=== PATIENT | male | born 2000 | race Caucasian/White ===

== ENCOUNTER 2022-12-02 15:38 | Outpatient (OUT) | payer OTHER, SELFPAY ==
[2022-12-02 15:59] LABS: Basophils Percent Auto 0.4 % (0.2-2.0); Eosinophils Absolute Auto 0.1 10^3/uL (0.0-0.7); Eosinophils Percent Auto 0.8 % (0.9-7.0); Hematocrit 45.1 % (42.0-54.0); Hemoglobin 16.6 g/dL (14.0-18.0); Immature Granulocytes Abs Auto 0.03 10^3/uL (0.00-0.03); Immature Granulocytes Pct Auto 0.3 % (0.0-0.5); Lymphocytes Absolute Auto 2.4 10^3/uL (1.2-3.8); Lymphocytes Percent Auto 22.7 % (20.5-60.0); Mean Corpuscular HGB Conc 36.8 g/dL (29.9-35.2); Mean Corpuscular Hemoglobin 29.9 pg (25.9-34.0); Mean Corpuscular Volume 81.1 fL (80.0-94.0); Mean Platelet Volume 8.9 fL (9.5-13.5); Monocytes Absolute Auto 0.9 10^3/uL (0.3-0.8); Monocytes Percent Auto 8.5 % (1.7-12.0); Neutrophils Absolute Auto 7.1 10^3/uL (1.4-6.5); Neutrophils Percent Auto 67.3 % (43.0-75.0); Platelet Count 455 10^3/uL (150-450); Red Blood Count 5.56 10^6/uL (4.70-6.10); Red Cell Distribution Width 12.3 % (11.0-15.0); White Blood Count 10.5 10^3/uL (4.0-11.0)
[2022-12-02 16:16] LABS: Alanine Aminotransferase 21 U/L (16-63); Albumin Globulin Ratio 1.2; Albumin Level 4.5 g/dL (3.4-5.0); Alkaline Phosphatase 54 U/L (46-116); Anion Gap 11.6; Aspartate Amino Transferase 10 U/L (15-37); BUN Creatinine Ratio 12.1; Bilirubin Total 1.5 mg/dL (0.2-1.0); Calcium 9.7 mg/dL (8.5-10.1); Carbon Dioxide 28.2 mmol/L (21.0-32.0); Chloride 93 mmol/L (98-107); Estimated GFR (African America >60 (>=60); Estimated GFR (Non-African Ame >60 (>=60); Globulin 3.7 g/dL; Glucose 133 mg/dL (74-106); Magnesium 2.1 mg/dL (1.8-2.4); Potassium 3.8 mmol/L (3.5-5.1); Sodium 129 mmol/L (136-145); Total Protein 8.2 g/dL (6.4-8.2)
== END 2022-12-02 15:39 | disposition home or self-care (01) ==
LOC: LAB 15:44
PROVIDERS: PCP Family Medicine; Visit Provider Family Medicine
DX: E86.0 Dehydration (principal); R10.12 Left upper quadrant pain; M79.10 Myalgia, unspecified site
CPT/HCPCS: 36415; 80053; 83690; 83735; 85025

== ENCOUNTER 2023-10-13 10:31 | Emergency (ER) | payer OTHER, SELFPAY ==
[2023-10-13 10:33] VITALS: BP 131/102; PULSE 108; TEMP 37.6; O2SAT 99; BMI 20.2
--- NOTE | 2023-10-13 10:41 | ECG_ITS ---
The [facility] Test Date: 2023-10-13 Pat Name: MADI ZHONG Department: Room: - Gender: Male Manager Regulatory: : 2000 Requested By: CYNTHIA SHAFFER Order Number: [id number] Reading MD: GUERO GARCES Measurements Intervals Reeders Rate: 67 P: 84 MD: 140 QRS: 102 QRSD: 92 T: 53 QT: 382 QTc: 398 Interpretive Statements 1100 Sinus rhythm 1102 Sinus arrhythmia 2420 RSR (QR) in lead V1/V2, consistent with right ventricular conduction delay 6120 Possible right atrial enlargement 7100 Abnormal right axis deviation 9130 borderline ECG No previous ECG available for comparison Electronically Signed On 10-14-2023 13:20:14 EDT by GUEOR GARCES
--- NOTE | 2023-10-13 10:45 | XR_ITS ---
The [address] [address] Patient Name: MADI ZHONG MRN: [id number] date: 2000 Sex: M Assigned Patient Location: ER Current Patient Location: ED.MAIN Accession/Order Number: [id number] Exam Date: 10/13/2023 11:02 Report Date: 10/13/2023 11:24 At the request of: SHANNAN CARMONA Procedure: XR chest 1V EXAMINATION: XR chest 1V HISTORY: sob COMPARISON: No relevant comparison available. FINDINGS: LUNGS: No significant pulmonary parenchymal abnormalities. VASCULATURE: No increased pulmonary vasculature. PLEURA: No pneumothorax, effusion, or pleural thickening. CARDIAC: No cardiomegaly or cardiac silhouette abnormality. MEDIASTINUM: No visible mass or adenopathy. BONES: No fracture or visible bone lesion. OTHER: Negative. XR/XR chest 1V IMPRESSION: 1. Normal chest. Electronically authenticated by: CRISTO PERES Date: 10/13/2023 11:24
[2023-10-13 10:53] LABS: Basophils Percent Auto 0.3 % (0.2-2.0); Eosinophils Absolute Auto 0.1 10^3/uL (0.0-0.7); Eosinophils Percent Auto 0.4 % (0.9-7.0); Hematocrit 46.3 % (42.0-54.0); Hemoglobin 16.7 g/dL (14.0-18.0); Immature Granulocytes Abs Auto 0.04 10^3/uL (0.00-0.03); Immature Granulocytes Pct Auto 0.3 % (0.0-0.5); Lymphocytes Absolute Auto 3.9 10^3/uL (1.2-3.8); Mean Corpuscular HGB Conc 36.1 g/dL (29.9-35.2); Mean Corpuscular Hemoglobin 29.5 pg (25.9-34.0); Mean Corpuscular Volume 81.8 fL (80.0-94.0); Mean Platelet Volume 9.3 fL (9.5-13.5); Monocytes Absolute Auto 1.4 10^3/uL (0.3-0.8); Monocytes Percent Auto 9.2 % (1.7-12.0); Neutrophils Absolute Auto 10.1 10^3/uL (1.4-6.5); Neutrophils Percent Auto 64.8 % (43.0-75.0); Platelet Count 438 10^3/uL (150-450); Red Blood Count 5.66 10^6/uL (4.70-6.10); Red Cell Distribution Width 11.9 % (11.0-15.0); White Blood Count 15.5 10^3/uL (4.0-11.0)
[2023-10-13] MEDS: ONDANSETRON PF 4 MG/2 ML VIAL IV (11:01)
[2023-10-13] MEDS: 0.9 % SODIUM CHLORIDE 1,000 ML 1000 ML IV (11:01)
[2023-10-13] MEDS: FAMOTIDINE/PF 20 MG/2 ML VIAL IV (11:01)
[2023-10-13 11:14] LABS: Alanine Aminotransferase 22 U/L (16-63); Albumin Globulin Ratio 1.2; Albumin Level 4.9 g/dL (3.4-5.0); Alkaline Phosphatase 65 U/L (46-116); Anion Gap 20.7; Aspartate Amino Transferase 19 U/L (15-37); BUN Creatinine Ratio 17.9; Bilirubin Total 2.5 mg/dL (0.2-1.0); Calcium 9.6 mg/dL (8.5-10.1); Carbon Dioxide 23.7 mmol/L (21.0-32.0); Chloride 90 mmol/L (98-107); Estimated GFR (African America >60 (>=60); Estimated GFR (Non-African Ame >60 (>=60); Ethanol <3 mg/dL; Glucose 119 mg/dL (74-106); Magnesium 2.1 mg/dL (1.8-2.4); Potassium 3.4 mmol/L (3.5-5.1); Sodium 131 mmol/L (136-145); Total Protein 8.9 g/dL (6.4-8.2); Troponin I High Sensitivity 6.3 pg/mL (4.0-76.1)
[2023-10-13 11:16] VITALS: PULSE 67
--- NOTE | 2023-10-13 11:16 | CT_ITS ---
The [address] [address] Patient Name: MADI ZHONG MRN: [id number] date: 2000 Sex: M Assigned Patient Location: ER Current Patient Location: ED.MAIN Accession/Order Number: [id number] Exam Date: 10/13/2023 11:23 Report Date: 10/13/2023 11:50 At the request of: SHANNAN CARMONA Procedure: CT abdomen pelvis wo con EXAM: CT abdomen pelvis wo con HISTORY: epigastric abd pain and leukocytosis COMPARISON: None. TECHNIQUE: Axial soft tissue windows of the abdomen and pelvis with coronal and sagittal reformats. CT dose reduction technique was used including Automated Exposure Control. Findings: Lack of intravenous contrast limits evaluation. ABDOMEN: There is a small region of focal fatty infiltration within the liver adjacent to the falciform ligament. The gallbladder, spleen, pancreas, adrenal glands and kidneys are unremarkable. The visualized portions of the bilateral ureters are nondilated. Evaluation of the bowel is limited given the absence of oral contrast. No bowel obstruction. The appendix is not definitely identified. The aorta is normal caliber. No enlarged abdominal lymph nodes or free abdominal fluid. Pelvis: Unremarkable bladder. The prostate is nonenlarged. No enlarged pelvic lymph nodes or free pelvic fluid. No aggressive sclerotic or lytic osseous lesions. CT/CT abdomen pelvis wo con IMPRESSION: 1. No acute abdominal or pelvic abnormality. Electronically authenticated by: DENIA GUTHRIE Date: 10/13/2023 11:50
--- NOTE | 2023-10-13 11:55 | ED_ITS ---
HPI HPI - General Adult General Chief complaint: Nausea/Vomiting/Diarrhea Stated complaint: ABDOMIANL PAIN Time Seen by Provider: 10/13/23 10:40 Source: patient Mode of arrival: walk-in History of Present Illness HPI narrative: Patient is coming to the ER with 3 days history of nausea vomiting and not tolerating anything by mouth, the patient also have some epigastric pain No other complaints or diarrhea or fever or chills although he mentions sometimes he have shortness of breath but he admits that he have an anxiety Nobody who had similar symptoms at home Related Data Previous Rx's ?Medication ?Instructions ?Recorded dicyclomine 20 mg tablet 20 mg PO QID PRN abdominal pain 10/13/23 #10 tabs famotidine 20 mg tablet (Pepcid) 20 mg PO BID #10 tabs 10/13/23 ondansetron 4 mg disintegrating 4 mg PO Q8H PRN nausea and 10/13/23 tablet vomiting 48 hours #10 tabs pantoprazole 40 mg granules 40 mg PO DAILY #30 ea 10/13/23 delayed-release for susp in packet (Protonix) Allergies Allergy/AdvReac Type Severity Reaction Status Date / Time No Known Drug Allergies Allergy Verified 10/13/23 10:38 Opioid HPI Opioid Management Most Recent Opioid Data: Last Pain Scale 5 10/13/23 10:33 Review of Systems ROS Status of ROS 10 or more systems reviewed and unremark able except as noted in history and below Exam Narrative Exam Narrative: Nurses notes and vital signs reviewed and patient is not hypoxic. General: Well-appearing and in no apparent distress. Skin: Warm, dry, no pallor noted. No rash. Head: Normocephalic, atraumatic. Neck: Supple, non-tender. Eye: Pupils are equal, round and EOMI. No scleral icterus. Ears, Nose, Mouth, and Throat: TM are clear, no nasal mucosal hypertrophy. Oral mucosa is moist, no posterior oropharynx erythema, uvula is mid-line Cardiovascular: Regular Rate and Rhythm without murmur, gallop or rub. Respiratory: No accessory muscle use or respiratory distress. Lungs are clear to auscultation, no wheezing, rales or rhonchi Chest Wall: no tenderness Back: No midline thoracic or lumbar vertebral tenderness. No CVA tenderness Musculoskeletal: normal ROM, no calf or popliteal tenderness, no lower extremity edema/swelling GI: Abdomen is soft, non-distended. Normal bowel sounds. No masses appreciated. Epigastric discomfort on examination,. No rebound, guarding, or rigidity noted. Neurological: A&O x4. No cranial nerve dysfunction observed. No truncal ataxia. Moves all extremities. Sensation intact. Psychiatric: Cooperative and interactive. Normal mood and affect. Constitutional Vital Signs, click to edit/add: Last Vital Signs Temp 99.6 F 10/13/23 10:33 Pulse 108 H 10/13/23 10:33 Resp 18 10/13/23 10:33 BP 131/102 H 10/13/23 10:33 Pulse Ox 99 10/13/23 10:33 O2 Del Method Room Air 10/13/23 10:33 Course Vital Signs Vital signs: Vital Signs Temperature 99.6 F 10/13/23 10:33 Pulse Rate 108 H 10/13/23 10:33 Respiratory Rate 18 10/13/23 10:33 Blood Pressure 131/102 H 10/13/23 10:33 Pulse Oximetry 99 10/13/23 10:33 Oxygen Delivery Method Room Air 10/13/23 10:33 Temperature 99.6 F 10/13/23 10:33 Pulse Rate 108 H 10/13/23 10:33 Respiratory Rate 18 10/13/23 10:33 Blood Pressure 131/102 H 10/13/23 10:33 Pulse Oximetry 99 10/13/23 10:33 Oxygen Delivery Method Room Air 10/13/23 10:33 Medical Decision Making MDM Narrative Medical decision making narrative: The patient presenting to us with a EKG showing sinus rhythm with a heart rate of [address] elevation or depression The patient CBC and chemistry shows mild leukocytosis in addition to a chemistry showing hyponatremia and hypokalemia which is mostly secondary to the nausea and the vomiting The patient provided with IV fluid Pepcid and Zofran in the ER after which she was feeling better CT abdomen pelvis without contrast showed no acute pathology as well as chest x- ray The patient was discharged home with supportive care with Pepcid Protonix as well as full liquid diet for few days as possible treatment for gastritis The patient is to follow up with primary care physician in next 2-3 days or to return to the emergency department should any of the signs or symptoms worsen or new symptoms develop. The patient agrees with the following Diagnosis and Treatment plan and the patient will be discharged home. Lab Data Labs: Lab Results 10/13/23 Range/Units 10:45 WBC 15.5 H (4.0-11.0) 10^3/uL RBC 5.66 (4.70-6.10) 10^6/uL Hgb 16.7 (14.0-18.0) g/dL Hct 46.3 (42.0-54.0) % MCV 81.8 (80.0-94.0) fL MCH 29.5 (25.9-34.0) pg MCHC 36.1 H (29.9-35.2) g/dL RDW 11.9 (11.0-15.0) % Plt Count 438 (150-450) 10^3/uL MPV 9.3 L (9.5-13.5) fL Neut % (Auto) 64.8 (43.0-75.0) % Lymph % (Auto) 25.0 (20.5-60.0) % [place] % (Auto) 9.2 (1.7-12.0) % Eos % (Auto) 0.4 L (0.9-7.0) % Baso % (Auto) 0.3 (0.2-2.0) % Neut # (Auto) 10.1 H (1.4-6.5) 10^3/uL Lymph # (Auto) 3.9 H (1.2-3.8) 10^3/uL [place] # (Auto) 1.4 H (0.3-0.8) 10^3/uL Eos # (Auto) 0.1 (0.0-0.7) 10^3/uL Baso # (Auto) 0.0 (0.0-0.1) 10^3/uL Abs Immat Gran (auto) 0.04 H (0.00-0.03) 10^3/uL Imm/Tot Granulo (auto) 0.3 (0.0-0.5) % Sodium 131 L (136-145) mmol/L Potassium 3.4 L (3.5-5.1) mmol/L Chloride 90 L (98-107) mmol/L Carbon Dioxide 23.7 (21.0-32.0) mmol/L Anion Gap 20.7 BUN 21.0 H (7.0-18.0) mg/dL Creatinine 1.17 (0.70-1.30) mg/dL Est GFR ( Amer) >60 (>=60) Est GFR (Non-Af Amer) >60 (>=60) BUN/Creatinine Ratio 17.9 Glucose 119 H (74-106) mg/dL Lactate 2.0 (0.4-2.0) mmol/L Calcium 9.6 (8.5-10.1) mg/dL Magnesium 2.1 (1.8-2.4) mg/dL Total Bilirubin 2.5 H (0.2-1.0) mg/dL AST 19 (15-37) U/L ALT 22 (16-63) U/L Alkaline Phosphatase 65 (46-116) U/L Troponin I High Sens 6.3 (4.0-76.1) pg/mL Total Protein 8.9 H (6.4-8.2) g/dL Albumin 4.9 (3.4-5.0) g/dL Globulin 4.0 g/dL Albumin/Globulin Ratio 1.2 Lipase 24.0 (16.0-77.0) U/L Ethanol Quant <3 mg/dL Discharge Plan Discharge Stand Alone Forms: Portal Instructions Chief Complaint: Nausea/Vomiting/Diarrhea Clinical Impression: Gastritis Patient Disposition: Home, Self-Care Time of Disposition Decision: 12:03 Condition: Good Prescriptions / Home Meds: New ondansetron 4 mg tablet,disintegrating 4 mg PO Q8H PRN (Reason: nausea and vomiting) 2 Days Qty: 10 0RF famotidine [Pepcid] 20 mg tablet 20 mg PO BID Qty: 10 0RF pantoprazole [Protonix] [address] for susp in packet 40 mg PO DAILY Qty: 30 0RF dicyclomine 20 mg tablet 20 mg PO QID PRN (Reason: abdominal pain) Qty: 10 0RF Print Language: Kinyarwanda Instructions: Gastritis (DC), Full Liquid Diet (DC) Referrals: Maribel Garcia MD [Primary Care Provider] - 1 week
[2023-10-13 12:36] VITALS: BP 128/89; PULSE 92; O2SAT 99
== END 2023-10-13 12:38 | disposition home or self-care (01) ==
PROVIDERS: Emergency Provider Emergency Medicine; PCP Family Medicine
DX: K29.70 Gastritis, unspecified, without bleeding (principal); E87.1 Hypo-osmolality and hyponatremia; E87.6 Hypokalemia
CPT/HCPCS: 36415; 71045; 74176; 80053; 80320; 83605; 83690; 83735; 84484; 85025; 93005; 96361; 96374; 96375; 99285; J2405

== ENCOUNTER 2023-12-01 17:12 | Emergency (ER) | payer OTHER, SELFPAY ==
[2023-12-01 18:07] VITALS: BP 113/91; PULSE 117; TEMP 37.4; O2SAT 100; BMI 42.7
--- NOTE | 2023-12-01 18:36 | XR_ITS ---
The [address] [address] Patient Name: MADI ZHONG MRN: [id number] date: 2000 Sex: M Assigned Patient Location: ER Current Patient Location: ER Accession/Order Number: [id number] Exam Date: 12/01/2023 18:45 Report Date: 12/01/2023 19:38 At the request of: DERREK VALLADARES Procedure: XR chest 2V EXAMINATION: XR chest 2V, , 12/01/2023 6:45 PM EDT INDICATION: epigastic pain HISTORY: Ordering Provider Reason for Exam: epigastic pain Technologist Note: Additional: COMPARISON: None. TECHNIQUE: Chest x-ray: Two views. FINDINGS: No pneumothorax, pleural effusion or focal airspace consolidation. Heart is normal in size. Bony thorax is unremarkable. XR/XR chest 2V IMPRESSION: No acute cardiopulmonary process. Electronically authenticated by: ANDRES RAE Date: 12/01/2023 19:38
[2023-12-01 18:46] LABS: Basophils Percent Auto 0.1 % (0.2-2.0); Eosinophils Percent Auto 0.1 % (0.9-7.0); Hematocrit 44.4 % (42.0-54.0); Hemoglobin 16.1 g/dL (14.0-18.0); Immature Granulocytes Abs Auto 0.04 10^3/uL (0.00-0.03); Immature Granulocytes Pct Auto 0.3 % (0.0-0.5); Lymphocytes Absolute Auto 1.4 10^3/uL (1.2-3.8); Lymphocytes Percent Auto 11.4 % (20.5-60.0); Mean Corpuscular HGB Conc 36.3 g/dL (29.9-35.2); Mean Corpuscular Hemoglobin 30.1 pg (25.9-34.0); Mean Platelet Volume 9.6 fL (9.5-13.5); Monocytes Absolute Auto 0.8 10^3/uL (0.3-0.8); Monocytes Percent Auto 6.3 % (1.7-12.0); Neutrophils Absolute Auto 10.4 10^3/uL (1.4-6.5); Neutrophils Percent Auto 81.8 % (43.0-75.0); Platelet Count 348 10^3/uL (150-450); Red Blood Count 5.35 10^6/uL (4.70-6.10); Red Cell Distribution Width 12.7 % (11.0-15.0); White Blood Count 12.7 10^3/uL (4.0-11.0)
[2023-12-01 18:54] LABS: Bilirubin Urine MODERATE (NEGATIVE); Blood Urine NEGATIVE (NEGATIVE); Clarity Urine CLEAR (CLEAR); Glucose Urine UA NEGATIVE (NEGATIVE); Ketones Urine 40 mg/dL (NEGATIVE); Leukocyte Esterase Urine NEGATIVE (NEGATIVE); Nitrite Urine NEGATIVE (NEGATIVE); Protein Urine 100 mg/dL (NEG/TRACE); Specific Gravity Urine >=1.030 (1.005-1.025)
[2023-12-01 18:57] LABS: Urine Microscopic Indicated YES
[2023-12-01 19:04] LABS: Bacteria Urine MODERATE #/HPF (NONE SEEN); Cast Seen? SEEN #/LPF (NONE SEEN); Color Urine BROWN (YELLOW); Crystals Seen? None Seen #/HPF (None Seen); Hyaline Casts Urine FEW; Mucus Urine MODERATE (NONE SEEN); RBC Urine NONE SEEN #/HPF (0-2); Squamous Epithelial Cell Urine FEW #/LPF (NONE/RARE); Transitional Epi Cells Urine RARE #/LPF (NONE SEEN); WBC Urine NONE SEEN #/HPF (NONE SEEN)
[2023-12-01 19:06] LABS: Urine Culture Indicated YES
[2023-12-01 19:15] LABS: Alanine Aminotransferase 19 U/L (16-63); Albumin Globulin Ratio 1.1; Albumin Level 4.6 g/dL (3.4-5.0); Alkaline Phosphatase 72 U/L (46-116); Anion Gap 19.3; Aspartate Amino Transferase 19 U/L (15-37); Bilirubin Total 1.9 mg/dL (0.2-1.0); Calcium 9.9 mg/dL (8.5-10.1); Carbon Dioxide 25.3 mmol/L (21.0-32.0); Chloride 92 mmol/L (98-107); Estimated GFR (African America >60 (>=60); Estimated GFR (Non-African Ame >60 (>=60); Glucose 88 mg/dL (74-106); Potassium 3.6 mmol/L (3.5-5.1); Sodium 133 mmol/L (136-145); Total Protein 8.6 g/dL (6.4-8.2)
[2023-12-01] MEDS: 0.9 % SODIUM CHLORIDE 1,000 ML 100 ML IV (19:17)
[2023-12-01] MEDS: ONDANSETRON PF 4 MG/2 ML VIAL IV (19:17)
[2023-12-01] MEDS: FAMOTIDINE/PF 20 MG/2 ML VIAL IV (20:20)
[2023-12-01] MEDS: DICYCLOMINE HCL 10 MG CAPSULE 20 MG PO (20:20)
--- NOTE | 2023-12-01 20:29 | ED.ABDPAIN1 ---
HPI - Abdominal Pain General Chief Complaint: Abdominal Pain Stated Complaint: Abdominal Pain Time Seen by Provider: 12/01/23 18:26 Source: patient Mode of arrival: Wheelchair Limitations: no limitations History of Present Illness HPI narrative: 23-year-old male presents here to the emergency room chief complaint of cyclical vomiting. Patient has not known history of marijuana use with cyclical vomiting. He states he was told previously to slow down his smoking marijuana. Presents today with 2-day history of vomiting after drinking alcohol and smoking marijuana. Patient is here with a aunt Who brought him here for evaluation. Patient complains of abdominal cramping and tenderness. Vital signs are stable he is not febrile. Related Data Home Medications ?Medication ?Instructions ?Recorded ?Confirmed fluoxetine 20 mg capsule 20 mg PO DAILY 12/01/23 12/01/23 Previous Rx's ?Medication ?Instructions ?Recorded pantoprazole 40 mg granules 40 mg PO DAILY #30 ea 10/13/23 delayed-release for susp in packet (Protonix) ondansetron 4 mg disintegrating 4 mg PO Q8H 48 hours #6 tabs 12/01/23 tablet Allergies Allergy/AdvReac Type Severity Reaction Status Date / Time No Known Drug Allergies Allergy Verified 12/01/23 18:07 Review of Systems ROS Status of ROS 10 or more systems reviewed and unremarkable except as noted in history and below Exam Narrative Exam Narrative: All Systems are negative except as noted/marked.All systems reviewed and otherwise negative Nurses note and vital signs reviewed and patient is not hypoxic. General: The patient appears well and in no apparent distress. Patient is resting comfortably on cart. Skin: Warm, dry, no pallor noted. There is no rash noted. Head: Normocephalic, atraumatic Eye: Normal conjunctiva, no drainage, EOMI. PERRL Ears, Nose, Mouth, and Throat: oral mucosa is moist. Nares patent. Mouth without vesicles. Ear canals patent. Tm's without Erythema Cardiovascular: Regular Rate and Rhythm Respiratory: Patient is in no distress, no accessory muscle use, lungs are clear to auscultation, no wheezing, rales or rhonchi Back: non-tender, no CVA tenderness bilaterally to percussion. GI: Normal bowel sounds, no tenderness to palpation, no masses appreciated. No rebound, guarding, or rigidity noted. Musculoskeletal: The patient has no evidence of calf tenderness, no pitting edema, symmetrical pulses noted bilaterally Neurological: A&O x4, normal speech Psychiatric: Cooperative Constitutional Vital Signs, click to edit/add: Last Vital Signs Temp 99.3 F 12/01/23 18:07 Pulse 117 H 12/01/23 18:07 Resp 16 12/01/23 18:07 BP 113/91 12/01/23 18:07 Pulse Ox 100 12/01/23 18:07 O2 Del Method Room Air 12/01/23 18:07 Course Vital Signs Vital signs: Vital Signs Temperature 99.3 F 12/01/23 18:07 Pulse Rate 117 H 12/01/23 18:07 Respiratory Rate 16 12/01/23 18:07 Blood Pressure 113/91 12/01/23 18:07 Pulse Oximetry 100 12/01/23 18:07 Oxygen Delivery Method Room Air 12/01/23 18:07 Temperature 99.3 F 12/01/23 18:07 Pulse Rate 117 H 12/01/23 18:07 Respiratory Rate 16 12/01/23 18:07 Blood Pressure 113/91 12/01/23 18:07 Pulse Oximetry 100 12/01/23 18:07 Oxygen Delivery Method Room Air 12/01/23 18:07 MDM - Abdominal Pain MDM Narrative Medical decision making narrative: 23-year-old male presents here to the emergency room chief complaint of cyclical vomiting. Patient has not known history of marijuana use with cyclical vomiting. He states he was told previously to slow down his smoking marijuana. Presents today with 2-day history of vomiting after drinking alcohol and smoking marijuana. Patient is here with a aunt : Who brought him here for evaluation. Patient complains of abdominal cramping and tenderness. Vital signs are stable he is not febrile. Here with the above symptoms and nausea vomiting after using marijuana and drinking alcohol. Blood work showed a mildly elevated W [place] BCs 12.7 elevated BUN and creatinine 24 and 1.33. Slightly hyponatremic. I attest these values to his vomiting. Patient has had no vomiting here in the emergency room he has been medicated with IV Zofran Pepcid and Toradol. Also given Bentyl. X-ray shows no acute abnormalities. Patient had previous CT scans abdomen soft nontender to palpation my exam today. Believe most of his discomfort is due to the vomiting. Patient be able to be discharged home he is stable at this time he states he wants to go home and sleep. His aunt is at bedside and will be with him at home. Differential Diagnosis Differential diagnosis: Likely abdominal pain, acute appendicitis, constipation and gastroenteritis Medical Records Attestation: I reviewed the patient's medical records. Lab Data Attestation: I reviewed the patient's lab results. Labs: Lab Results 12/01/23 12/01/23 Range/Units 18:36 18:38 WBC 12.7 H (4.0-11.0) 10^3/uL RBC 5.35 (4.70-6.10) 10^6/uL Hgb 16.1 (14.0-18.0) g/dL Hct 44.4 (42.0-54.0) % MCV 83.0 (80.0-94.0) fL MCH 30.1 (25.9-34.0) pg MCHC 36.3 H (29.9-35.2) g/dL RDW 12.7 (11.0-15.0) % Plt Count 348 (150-450) 10^3/uL MPV 9.6 (9.5-13.5) fL Neut % (Auto) 81.8 H (43.0-75.0) % Lymph % (Auto) 11.4 L (20.5-60.0) % [place] % (Auto) 6.3 (1.7-12.0) % Eos % (Auto) 0.1 L (0.9-7.0) % Baso % (Auto) 0.1 L (0.2-2.0) % Neut # (Auto) 10.4 H (1.4-6.5) 10^3/uL Lymph # (Auto) 1.4 (1.2-3.8) 10^3/uL [place] # (Auto) 0.8 (0.3-0.8) 10^3/uL Eos # (Auto) 0.0 (0.0-0.7) 10^3/uL Baso # (Auto) 0.0 (0.0-0.1) 10^3/uL Abs Immat Gran (auto) 0.04 H (0.00-0.03) 10^3/uL Imm/Tot Granulo (auto) 0.3 (0.0-0.5) % Sodium 133 L (136-145) mmol/L Potassium 3.6 (3.5-5.1) mmol/L Chloride 92 L (98-107) mmol/L Carbon Dioxide 25.3 (21.0-32.0) mmol/L Anion Gap 19.3 BUN 24.0 H (7.0-18.0) mg/dL Creatinine 1.33 H (0.70-1.30) mg/dL Est GFR ( Amer) >60 (>=60) Est GFR (Non-Af Amer) >60 (>=60) BUN/Creatinine Ratio 18.0 Glucose 88 (74-106) mg/dL Calcium 9.9 (8.5-10.1) mg/dL Total Bilirubin 1.9 H (0.2-1.0) mg/dL AST 19 (15-37) U/L ALT 19 (16-63) U/L Alkaline Phosphatase 72 (46-116) U/L Total Protein 8.6 H (6.4-8.2) g/dL Albumin 4.6 (3.4-5.0) g/dL Globulin 4.0 g/dL Albumin/Globulin Ratio 1.1 Lipase 23.0 (16.0-77.0) U/L Urine Color Brown A (YELLOW) Urine Clarity Clear (CLEAR) Urine pH 6.0 (5.0-9.0) Ur Specific [place] >=1.030 A (1.005-1.025) Urine Protein 100 A (NEG/TRACE) mg/dL Urine Glucose (UA) Negative (NEGATIVE) mg/dL Urine Ketones 40 A (NEGATIVE) mg/dL Urine Occult Blood Negative (NEGATIVE) Urine Nitrite Negative (NEGATIVE) Urine Bilirubin Moderate A (NEGATIVE) Urine Urobilinogen 1.0 (0.2-1.0) EU/dL Ur Leukocyte Esterase Negative (NEGATIVE) Urine RBC None seen (0-2) #/HPF Urine WBC None seen (NONE SEEN) #/HPF Ur Squamous Epith Cells Few A (NONE/RARE) #/LPF Ur Transition Epith Cell Rare A (NONE SEEN) #/LPF Urine Crystals None seen (None Seen) #/HPF Urine Bacteria Moderate A (NONE SEEN) #/HPF Urine Casts Seen A (NONE SEEN) #/LPF Hyaline Casts Few Urine Mucus Moderate A (NONE SEEN) Ur Culture Indicated? Yes Imaging Data Chest x-ray: Radiologist's impression: ITS Impressions Chest X-Ray 12/01/23 18:36 IMPRESSION: No acute cardiopulmonary process. Electronically authenticated by: ANDRES RAE Date: 12/01/2023 19:38 Discharge Plan Discharge Chief Complaint: Abdominal Pain Clinical Impression: Cyclical vomiting Patient Disposition: Home, Self-Care Time of Disposition Decision: 21:03 Condition: Good Prescriptions / Home Meds: New ondansetron 4 mg tablet,disintegrating 4 mg PO Q8H 2 Days Qty: 6 0RF No Action pantoprazole [Protonix] [address] for susp in packet 40 mg PO DAILY Qty: 30 0RF fluoxetine 20 mg capsule 20 mg PO DAILY Print Language: Fijian Instructions: Acute Nausea and Vomiting (ED) Referrals: Maribel Garcia MD [Primary Care Provider] - 1 week
[2023-12-01] MEDS: KETOROLAC TROMETHAMINE 30 MG/ML VIAL IVP (20:49)
== END 2023-12-01 21:24 | disposition home or self-care (01) ==
PROVIDERS: Physician Assistant; Emergency Provider Emergency Medicine Emergency Medical Services; PCP Family Medicine
DX: R11.15 Cyclical vomiting syndrome unrelated to migraine (principal); R10.9 Unspecified abdominal pain
CPT/HCPCS: 36415; 71046; 80053; 81001; 83690; 85025; 87086; 96361; 96374; 96375; 99284; J1885; J2405

== ENCOUNTER 2023-12-04 10:47 | Emergency (ER) | payer OTHER, SELFPAY ==
[2023-12-04 10:53] VITALS: BP 132/95; PULSE 113; TEMP 37.5; O2SAT 99; BMI 19.1
--- NOTE | 2023-12-04 11:08 | XR_ITS ---
The [address] [address] Patient Name: MADI ZHONG MRN: [id number] date: 2000 Sex: M Assigned Patient Location: ER Current Patient Location: ER Accession/Order Number: [id number] Exam Date: 12/04/2023 11:15 Report Date: 12/04/2023 11:42 At the request of: SHANNAN CARMONA Procedure: XR chest 1V EXAMINATION: XR chest 1V HISTORY: epigastric pain COMPARISON: 10/13/2023 TECHNIQUE: AP portable erect FINDINGS: LUNGS: No significant pulmonary parenchymal abnormalities. VASCULATURE: No increased pulmonary vasculature. PLEURA: No pneumothorax, effusion, or pleural thickening. CARDIAC: No cardiomegaly or cardiac silhouette abnormality. MEDIASTINUM: No visible mass or adenopathy. BONES: No fracture or visible bone lesion. OTHER: Negative. XR/XR chest 1V IMPRESSION: No acute cardiopulmonary process Electronically authenticated by: SOFY TAVAREZ Date: 12/04/2023 11:42
[2023-12-04] MEDS: 0.9 % SODIUM CHLORIDE 1,000 ML 1000 ML IV (11:10)
[2023-12-04 11:22] LABS: Basophils Percent Auto 0.2 % (0.2-2.0); Eosinophils Percent Auto 0.1 % (0.9-7.0); Hematocrit 43.8 % (42.0-54.0); Hemoglobin 16.1 g/dL (14.0-18.0); Immature Granulocytes Abs Auto 0.05 10^3/uL (0.00-0.03); Immature Granulocytes Pct Auto 0.4 % (0.0-0.5); Lymphocytes Absolute Auto 1.6 10^3/uL (1.2-3.8); Lymphocytes Percent Auto 12.5 % (20.5-60.0); Mean Corpuscular HGB Conc 36.8 g/dL (29.9-35.2); Mean Corpuscular Hemoglobin 30.7 pg (25.9-34.0); Mean Corpuscular Volume 83.6 fL (80.0-94.0); Mean Platelet Volume 9.3 fL (9.5-13.5); Monocytes Percent Auto 7.5 % (1.7-12.0); Neutrophils Absolute Auto 10.2 10^3/uL (1.4-6.5); Neutrophils Percent Auto 79.3 % (43.0-75.0); Platelet Count 332 10^3/uL (150-450); Red Blood Count 5.24 10^6/uL (4.70-6.10); Red Cell Distribution Width 12.3 % (11.0-15.0); White Blood Count 12.8 10^3/uL (4.0-11.0)
[2023-12-04] MEDS: DICYCLOMINE HCL 20 MG/2 ML VIAL IM (11:34)
[2023-12-04] MEDS: DIPHENHYDRAMINE HCL 50 MG/ML VIAL IV (11:34)
[2023-12-04] MEDS: FAMOTIDINE/PF 20 MG/2 ML VIAL IV (11:34)
[2023-12-04 11:43] LABS: Alanine Aminotransferase 19 U/L (16-63); Albumin Globulin Ratio 1.2; Albumin Level 4.7 g/dL (3.4-5.0); Alkaline Phosphatase 63 U/L (46-116); Anion Gap 19.9; Aspartate Amino Transferase 15 U/L (15-37); BUN Creatinine Ratio 15.2; Bilirubin Total 2.2 mg/dL (0.2-1.0); Calcium 9.8 mg/dL (8.5-10.1); Carbon Dioxide 23.4 mmol/L (21.0-32.0); Chloride 90 mmol/L (98-107); Estimated GFR (African America >60 (>=60); Estimated GFR (Non-African Ame >60 (>=60); Globulin 3.8 g/dL; Glucose 89 mg/dL (74-106); Magnesium 2.3 mg/dL (1.8-2.4); Potassium 3.3 mmol/L (3.5-5.1); Sodium 130 mmol/L (136-145); Total Protein 8.5 g/dL (6.4-8.2)
--- NOTE | 2023-12-04 13:03 | ED_ITS ---
HPI - Abdominal Pain General Chief Complaint: Abdominal Pain Stated Complaint: ABDOMINAL PAIN Time Seen by Provider: 12/04/23 10:58 Source: patient Mode of arrival: walk-in Limitations: no limitations History of Present Illness HPI narrative: The patient presented to us with abdominal pain mostly all over the abdomen but most epigastric, the pain associated with nausea and vomiting he had presented to us before with similar complaints, the patient denies any other concerns of diarrhea no fever no chills no coughing, he did mention that he is anxious and he has been going through a lot of sick contacts at home between his brother who was admitted for psychiatric problem as well as his father. The patient seemed to be emotional about this problem and he mentioned that he is going through a lot of stress sometimes not sleeping enough. He is not suicidal or homicidal. The patient have no blood in stool or vomiting Related Data Home Medications ?Medication ?Instructions ?Recorded ?Confirmed fluoxetine 20 mg capsule 20 mg PO DAILY 12/01/23 12/04/23 Previous Rx's ?Medication ?Instructions ?Recorded pantoprazole 40 mg granules 40 mg PO DAILY #30 ea 10/13/23 delayed-release for susp in packet (Protonix) dicyclomine 20 mg tablet 20 mg PO QID PRN abdominal pain 12/04/23 #10 tabs famotidine 20 mg tablet (Pepcid) 20 mg PO BID #10 tabs 12/04/23 promethazine 25 mg tablet 25 mg PO TID PRN nausea and 12/04/23 vomiting #10 tabs Allergies Allergy/AdvReac Type Severity Reaction Status Date / Time No Known Drug Allergies Allergy Verified 12/01/23 18:07 Review of Systems ROS Status of ROS 10 or more systems reviewed and unremark able except as noted in history and below PFSH PFSH Social History Little interest or pleasure in doing things: more than half the days Feeling down, depressed, or hopeless: several days Exam Narrative Exam Narrative: Nurses notes and vital signs reviewed and patient is not hypoxic. General: Well-appearing and in no apparent distress. Skin: Warm, dry, no pallor noted. No rash. Head: Normocephalic, atraumatic. Neck: Supple, non-tender. Eye: Pupils are equal, round and EOMI. No scleral icterus. Ears, Nose, Mouth, and Throat: TM are clear, no nasal mucosal hypertrophy. Oral mucosa is moist, no posterior oropharynx erythema, uvula is mid-line Cardiovascular: Regular Rate and Rhythm without murmur, gallop or rub. Respiratory: No accessory muscle use or respiratory distress. Lungs are clear to auscultation, no wheezing, rales or rhonchi Chest Wall: no tenderness Back: No midline thoracic or lumbar vertebral tenderness. No CVA tenderness Musculoskeletal: normal ROM, no calf or popliteal tenderness, no lower extremity edema/swelling GI: Abdomen is soft, non-distended. Normal bowel sounds. No masses appreciated. Epigastric discomfort ,no rebound, guarding, or rigidity noted. Neurological: A&O x4. No cranial nerve dysfunction observed. No truncal ataxia. Moves all extremities. Sensation intact. Psychiatric: Cooperative and interactive. Normal mood and affect. Constitutional Vital Signs, click to edit/add: Last Vital Signs Temp 99.5 F 12/04/23 10:53 Pulse 113 H 12/04/23 10:53 Resp 12/04/23 10:53 BP 132/95 H 12/04/23 10:53 Pulse Ox 99 12/04/23 10:53 O2 Del Method Room Air 12/04/23 10:53 Course Vital Signs Vital signs: Vital Signs Temperature 99.5 F 12/04/23 10:53 Pulse Rate 113 H 12/04/23 10:53 Respiratory Rate 12/04/23 10:53 Blood Pressure 132/95 H 12/04/23 10:53 Pulse Oximetry 99 12/04/23 10:53 Oxygen Delivery Method Room Air 12/04/23 10:53 Temperature 99.5 F 12/04/23 10:53 Pulse Rate 113 H 12/04/23 10:53 Respiratory Rate 12/04/23 10:53 Blood Pressure 132/95 H 12/04/23 10:53 Pulse Oximetry 99 12/04/23 10:53 Oxygen Delivery Method Room Air 12/04/23 10:53 MDM - Abdominal Pain MDM Narrative Medical decision making narrative: The patient CBC shows no acute pathology there was some leukocytosis which is improved compared to his last blood workup And the patient chemistry shows some dehydration signs with low sodium The patient was provided IV fluids and Benadryl after which she was feeling be tter he also was provided a GI cocktail X-ray of the chest showed no acute pathology The patient was instructed about the importance of follow-up with gastroenterology in the need for possible endoscopy in case of continuous symptoms Patient also was instructed about the alarming symptoms to bring him back including intractable nausea and vomiting or increasing pain or any blood in stool or vomitus The patient was discharged home with Romeo De Anda and referred to gastroenterology as outpatient Full liquid diet for 5 days The patient is to follow up with primary care physician in next 2-3 days or to return to the emergency department should any of the signs or symptoms worsen or new symptoms develop. The patient agrees with the following Diagnosis and Treatment plan and the patient will be discharged home. Lab Data Labs: Lab Results 12/04/23 Range/Units 11:15 WBC 12.8 H (4.0-11.0) 10^3/uL RBC 5.24 (4.70-6.10) 10^6/uL Hgb 16.1 (14.0-18.0) g/dL Hct 43.8 (42.0-54.0) % MCV 83.6 (80.0-94.0) fL MCH 30.7 (25.9-34.0) pg MCHC 36.8 H (29.9-35.2) g/dL RDW 12.3 (11.0-15.0) % Plt Count 332 (150-450) 10^3/uL MPV 9.3 L (9.5-13.5) fL Neut % (Auto) 79.3 H (43.0-75.0) % Lymph % (Auto) 12.5 L (20.5-60.0) % Lawrence % (Auto) 7.5 (1.7-12.0) % Eos % (Auto) 0.1 L (0.9-7.0) % Baso % (Auto) 0.2 (0.2-2.0) % Neut # (Auto) 10.2 H (1.4-6.5) 10^3/uL Lymph # (Auto) 1.6 (1.2-3.8) 10^3/uL Lawrence # (Auto) 1.0 H (0.3-0.8) 10^3/uL Eos # (Auto) 0.0 (0.0-0.7) 10^3/uL Baso # (Auto) 0.0 (0.0-0.1) 10^3/uL Abs Immat Gran (auto) 0.05 H (0.00-0.03) 10^3/uL Imm/Tot Granulo (auto) 0.4 (0.0-0.5) % Sodium 130 L (136-145) mmol/L Potassium 3.3 L (3.5-5.1) mmol/L Chloride 90 L (98-107) mmol/L Carbon Dioxide 23.4 (21.0-32.0) mmol/L Anion Gap 19.9 BUN 16.0 (7.0-18.0) mg/dL Creatinine 1.05 (0.70-1.30) mg/dL Est GFR ( Amer) >60 (>=60) Est GFR (Non-Af Amer) >60 (>=60) BUN/Creatinine Ratio 15.2 Glucose 89 (74-106) mg/dL Calcium 9.8 (8.5-10.1) mg/dL Magnesium 2.3 (1.8-2.4) mg/dL Total Bilirubin 2.2 H (0.2-1.0) mg/dL AST 15 (15-37) U/L ALT 19 (16-63) U/L Alkaline Phosphatase 63 (46-116) U/L Total Protein 8.5 H (6.4-8.2) g/dL Albumin 4.7 (3.4-5.0) g/dL Globulin 3.8 g/dL Albumin/Globulin Ratio 1.2 Lipase 73.0 (16.0-77.0) U/L Discharge Plan Discharge Chief Complaint: Abdominal Pain Clinical Impression: Gastritis Qualifiers: Gastritis type: unspecified gastritis Chronicity: acute Gastritis bleeding: without bleeding Qualified Code(s): K29.00 - Acute gastritis without bleeding Patient Disposition: Home, Self-Care Time of Disposition Decision: 13:03 Condition: Good Prescriptions / Home Meds: New famotidine [Pepcid] 20 mg tablet 20 mg PO BID Qty: 10 0RF promethazine 25 mg tablet 25 mg PO TID PRN (Reason: nausea and vomiting) Qty: 10 0RF dicyclomine 20 mg tablet 20 mg PO QID PRN (Reason: abdominal pain) Qty: 10 0RF No Action pantoprazole [Protonix] [address] for susp in packet 40 mg PO DAILY Qty: 30 0RF fluoxetine 20 mg capsule 20 mg PO DAILY Print Language: Lao Instructions: Gastritis (DC), Diet for Stomach Ulcers and Gastritis (ED) Referrals: GLADYS PICKENS [Physician] - 1 week Maribel Garcia MD [Primary Care Provider] - 1 week
[2023-12-04] MEDS: lidocaine HCL 15 ML, MAG HYDROX/ALUMINUM HYD/SIMETH 30 ML, HYOSCYAMINE SULFATE 0.25 MG PO (13:18)
[2023-12-04 13:30] VITALS: BP 135/92; PULSE 76; O2SAT 99
== END 2023-12-04 13:41 | disposition home or self-care (01) ==
PROVIDERS: Emergency Provider Emergency Medicine; PCP Family Medicine
DX: K29.00 Acute gastritis without bleeding (principal)
CPT/HCPCS: 36415; 71045; 80053; 83690; 83735; 85025; 96361; 96372; 96374; 96375; 99285; J0500; J1200